=== PATIENT | male | born 1965 | race Caucasian/White ===

== ENCOUNTER → 2020-10-22 13:20 | Outpatient (CLI) | payer OTHER, SELFPAY ==
[2020-10-22 13:43] LABS: Add Manual Diff / Slide Review NO; Basophils Absolute Auto 0 /uL (0-100); Basophils Percent Auto 0.9 % (0-2); Eosinophils Absolute Auto 100 /uL (0-450); Eosinophils Percent Auto 2.5 % (2-4); Hematocrit 40.4 % (41-53); Hemoglobin 13.7 g/dL (13.5-17.5); Lymphocytes Absolute Auto 1600 /uL (1100-4500); Lymphocytes Percent Auto 37.1 % (25-40); Mean Corpuscular Hemoglobin 30.4 PG (26-34); Mean Corpuscular Volume 89.4 fL (80-100); Monocytes Absolute Auto 400 /uL (0-900); Monocytes Percent Auto 9.4 % (3-14); Neutrophils Absolute Auto 2200 /uL (1500-7000); Neutrophils Percent Auto 50.1 % (50-75); Platelet Count 196 X10^3/uL (150-400); Red Blood Cell Count 4.52 X10^6/uL (4.5-5.9); Red Cell Distribution Width 14.3 % (11.6-14.8); White Blood Cell Count 4.3 X10^3/uL (4.5-11.0)
[2020-10-22 13:59] LABS: Carbon Dioxide 32 mmol/L (22-32); Chloride 102 mmol/L (98-107); HEMOLYSIS < 15 (0-50); Potassium 4.5 mmol/L (3.4-5.1); Sodium 139 mmol/L (137-145)
== END ==
PROVIDERS: Referring Provider Orthopaedic Surgery; Visit Provider Orthopaedic Surgery
DX: Z01.812 Encounter for preprocedural laboratory examination (principal); Z01.818 Encounter for other preprocedural examination
CPT/HCPCS: 36415; 80051; 85025

== ENCOUNTER → 2021-06-29 08:44 | Outpatient (CLI) | payer OTHER, SELFPAY ==
[2021-06-29 10:41] LABS: COVID19 -Nasal RAPID Negative (Negative)
== END ==
PROVIDERS: Visit Provider Surgery
DX: Z20.822 Contact with and (suspected) exposure to COVID-19 (principal); Z01.812 Encounter for preprocedural laboratory examination
CPT/HCPCS: 87635; C9803

== ENCOUNTER 2021-06-30 12:24 | Day surgery (SDC) | payer OTHER, SELFPAY ==
[2021-06-30 12:36] VITALS: BP 143/91; PULSE 78; RESP 16; TEMP 36.5; O2SAT 97; BMI 33.5
[2021-06-30] MEDS: LACTATED RINGERS 1,000 ML 200 ML IV (12:45)
--- NOTE | 2021-06-30 13:29 | PM.HP.1 ---
History of Present Illness History of Present Illness Date Patient Seen: 06/30/21 Time Patient Seen: 13:29 Chief complaint: SDC Narrative: 56-year-old healthy male here for screening colonoscopy. No previous colonoscopy. Patient History Surgical History Status post left partial knee replacement Status post right partial knee replacement Family & Social History Family History Mother Heart disease Father Cancer Social History: household members spouse Tobacco & Substance use: Tobacco type cigars Smoking Status Current some day smoker alcohol intake current alcohol intake frequency a few times a week Substance Use Type does not use Meds Home Medications and Allergies Home Medications Medication Instructions Recorded Confirmed Type No Known Home Medications 06/30/21 06/30/21 History Allergies Allergy/AdvReac Type Severity Reaction Status Date / Time No Known Drug Allergies Allergy Unverified 05/12/21 09:43 Exam Vital Signs (past 8 hours): - 06/30/21 12:36 Temperature 97.7 F Pulse Rate 78 Respiratory Rate 16 Blood Pressure 143/91 H Pulse Oximetry 97 Oxygen Delivery Method Room Air Oxygen Flow Rate 0 Narrative Exam Narrative: Constitutional-he is oriented to person, place and time. No apparent distress Cardiovascular- regular rate, no peripheral edema Pulmonary-unlabored respiratory effort, no audible wheezing Abdominal-soft, non-tender, non-distended Musculoskeletal-no cyanosis or clubbing Neurological-nonfocal, normal strength throughout, normal gait. Skin-warm and dry Assessment & Plan Assessment & Plan narrative: The patient requires colorectal screening and colonoscopy is recommended. Technical details were discussed. Risks, benefits, alternatives explained. Risks including but not limited to myocardial infarction, aspiration, bleeding, pain, missed lesion, incomplete examination, need for further radiographic studies, colonic perforation, and need for major abdominal surgery were discussed. All questions were answered to their satisfaction, and they are in agreement with this plan. Time Spent With Patient Critical Care time: I spent a total of [] minutes of critical care time on this patient's care today; this time is exclusive of procedural time.
[2021-06-30] MEDS: MIDAZOLAM 5 MG/5 ML VIAL IV (13:45)
[2021-06-30] MEDS: fentaNYL 250 MCG/5 ML INJ IV (13:55)
--- NOTE | 2021-06-30 13:58 | PM.OP.COLON ---
Operative Date/Time/Diagnoses Date of procedure: 06/30/21 Time of procedure: 13:59 Pre-op diagnosis: screening colonoscopy Post-op diagnosis: same Procedure & Clinicians Study performed: colonoscopy Same procedure as scheduled: Yes Indications: Screening Surgeon: Gavin Ervin Procedure Notes Procedure in detail: Medications: Conscious sedation using 4 mg IV midazolam and 100 mcg IV of fentanyl The history and physical was performed/updated and the patient is ASA class is 2. The procedure was discussed in detail with the patient. Potential risks complications including infection, bleeding, missed diagnosis, perforation, need for surgery, and were explained. Their questions were answered and informed consent was obtained. Patient was brought to the procedure room and placed standard monitoring equipment. The patient's vital signs were monitored continuously throughout the entire procedure. Prior to starting time-out was performed. The patient was placed in the left lateral recumbent position. Procedural sedation was administered. Examination began with a thorough inspection of the perianal area there was no evidence of fissures, fistulae, external hemorrhoids or cutaneous malignancy. The colonoscopy scope was then placed into the anal canal and was advanced to the cecum, which was identified by the ileocecal valve, the appendiceal orifice and the confluence of the taenia. The scope was then slowly withdrawn examining colon thoroughly in all directions, irrigating it of any residual stool. FINDINGS 1. No masses, polyps or inflammation 2. Normal healthy colon The patient tolerated the procedure well. They will be discharged once criteria are met. The prep was of good/excellent quality. The withdrawl time was 7 minutes. The sedation time was 12 minutes. Complications: none Impression: Normal colonoscopy Post-procedure Recommendations: Colonoscopy in 10 years Disposition: same day surgery
[2021-06-30 14:02] VITALS: BP 127/101; PULSE 80; RESP 14; TEMP 36.5; O2SAT 100
[2021-06-30 14:07] VITALS: BP 125/100; PULSE 76; RESP 12; O2SAT 100
[2021-06-30 14:12] VITALS: BP 129/93; PULSE 77; RESP 12; O2SAT 99
[2021-06-30 14:22] VITALS: BP 144/88; PULSE 79; RESP 16; TEMP 36.7; O2SAT 100
--- NOTE | 2021-06-30 14:29 | SUR.PHASEII ---
Belly soft, ready to go left in stable condition.
== END 2021-06-30 14:40 | disposition home or self-care (01) ==
PROVIDERS: Referring Provider Surgery; Visit Provider Surgery
PROC: 0DJD8ZZ Inspection of Lower Intestinal Tract, Via Natural or Artificial Opening Endoscopic (ICD-10-PCS; CPT 45378; principal; 2021-06-30 13:45)
DX: Z12.11 Encounter for screening for malignant neoplasm of colon (principal); Z72.0 Tobacco use
CPT/HCPCS: 45378; 99152; J2250; J3010

== ENCOUNTER → 2022-07-26 14:59 | Outpatient (CLI) | payer OTHER, SELFPAY ==
--- NOTE | 2022-07-26 15:02 | DI.RAD.S_ITS ---
PROCEDURE: XR RIBS BI MIN 4V W CXR1V INDICATIONS: MULTIPLE FRACTURE OF RIBS TECHNIQUE: 2 views of the left ribs were acquired, along with a single view chest. COMPARISON: None. FINDINGS: There are fractures involving the posterior aspects of the patient's left 6th, 7th, 8th, 9th, and 10th ribs. There is a small to moderate size left pleural effusion/pneumothorax. There is some streaky areas of atelectasis versus infiltrate throughout the patient's left lung. I do not see evidence for pneumothorax. Heart mediastinal contours appear within normal limits. IMPRESSION: 1. Mildly displaced posterior rib fractures involving the left 6th, 7th, 8th, and 9th ribs. 2. Small to moderate-sized pleural effusion/hemothorax. 3. Streaky areas of atelectasis versus infiltrate throughout the patient's left lung. 4. No pneumothorax identified. Dictated by: Aime Odonnell M.D. on 07/26/2022 at 17:33 Approved by: Aime Odonnell M.D. on 07/26/2022 at 17:37
== END ==
PROVIDERS: Referring Provider Family Medicine; Visit Provider Family Medicine
DX: S22.42XD Multiple fractures of ribs, left side, subsequent encounter for fracture with routine healing (principal); J90 Pleural effusion, not elsewhere classified; X58.XXXD Exposure to other specified factors, subsequent encounter
CPT/HCPCS: 71101